=== PATIENT | female | born 1955 | race Caucasian/White ===

== ENCOUNTER 2024-11-20 12:17 | Outpatient (AMB) | payer MEDICARE, OTHER, SELFPAY ==
--- NOTE | 2024-11-20 12:19 | MHC.OFFVIS ---
Vital Signs 11/20/24 12:21 Height 5 ft 7 in BP 149/73 H Blood Pressure Location Rt brachial Pulse 69 Intake Visit Reasons: f/u Allergies No Known Allergies Allergy (Verified 11/20/24 12:25) Medication List - Last Reconciled 11/20/24 by Daisy Chowdhury CNP aripiprazole 2 mg PO DAILY aspirin 81 mg PO DAILY cdjtxekcwg-swmezgoake-ttc-cod [id number] mg 1 cap PO Q8H PRN cetirizine (Zyrtec) 10 mg PO DAILY fluticasone propionate 50 mcg/actuation 1 spray intranasal DAILY omeprazole 40 mg PO QAM pravastatin 40 mg PO DAILY propranolol 20 mg PO BID trazodone 100 mg PO BEDTIME venlafaxine 37.5 mg PO DAILY venlafaxine ER 150 mg PO DAILY HPI Comments Details: Headaches were happening about 2-3x/week and were more intense. Propranolol did not seem to be helping as much anymore. She was taking propranolol 20mg once a day in the morning. She did not realize directions were for twice a day and has not tried taking medication twice a day. Headaches were usually frontal, pressure-type pain with occasional photophobia and nausea, lasting up to a day. No sonophobia or vomiting. She was using Advil Cold and Sinus or butalbital as needed which helped to take the edge off. In the past, she used rizatriptan ODT with good relief and was asking if this medication could be tried again. Triggers included humidity. Sleep was okay. Going to gym. Previously, headaches were less intense with propranolol. No side effects. Using Butalbital as needed with relief in about 45 minutes. Hx of migraines 2-3 / wk controlled with Fioricet within half hour that started during menopause. Migraines can last up to 2 days. No triggers except possibly the hormonal changes of menopause and allergies. They start with a frontal headache across the face and therefore she calls them sinus migraines. Generally no associated sinus symptoms, does have some allergies. In the past she also found that Maxalt HARBORMASTER would work within 15 min. She also tried sumatriptan. She tried topiramate in the past for prophylaxis without relief. She has 2 sisters who have migraines. [facility] Medical History (Updated 11/20/24 @ 12:40 by Daisy Chowdhury CNP) COVID Headache Depression GERD (gastroesophageal reflux disease) Hypercholesterolemia Low back pain Migraine Family History Sister Migraine Sister Migraine Review of Systems Const Denies chills, Denies daytime sleepiness, Denies difficulty sleeping, Denies fatigue, Denies fever(s), Denies frequent falls, Reports headache(s), Denies increased appetite, Denies poor appetite, Denies snoring, Denies weakness, Denies weight gain and Denies weight loss Eyes Denies loss of vision ENT Reports Normal hearing present, Denies vertigo, Denies dizziness, Reports headache(s) and Denies neck pain Card Denies chest pain at rest, Denies chest pain with activity, Denies syncope, Denies leg edema, Denies palpitations, Denies dyspnea and Denies dyspnea on exertion Resp Denies cough, Denies dyspnea, Denies dyspnea on exertion and Denies snoring GI Denies abdominal pain, Denies constipation, Denies heartburn, Denies diarrhea and Denies nausea Denies urinary frequency, Denies urinary incontinence and Denies urinary urgency Musc Denies abnormal gait, Denies back pain, Denies myalgias, Denies arthralgias, Denies neck pain, Denies numbness, Denies stiffness and Denies tingling Neuro Reports Normal hearing present, Denies Abnormal speech present, Denies abnormal gait, Denies vertigo, Denies dizziness, Denies syncope, Denies frequent falls, Reports headache(s), Denies lack of coordination, Denies loss of vision, Denies memory loss, Denies numbness, Denies Other visual disturbances, Denies restless legs, Denies seizure-like activity, Denies tingling, Denies paresthesias, Denies tremor(s) and Denies weakness Psych Reports anxiety, Reports depression, Denies memory loss, Denies visual hallucinations and Denies hallucinations Endo Denies fatigue and Denies palpitations Physical Exam Const Other: General Appearance:? normal, in no acute distress. Heart:? S1, S2 normal, no murmurs. Lungs:? clear anteriorly and posteriorly. Musculoskeletal:? normal. Extremities:? no edema. Psych:? alert, oriented, cognitive function intact, cooperative with exam. Neuro Other: Abnormal Neurological Findings:?none.? Mental Status: alert and oriented X 3. Normal attention, orientation, memory, and affect. Cranial Nerves: Pupils are equal, round, and reactive to light. External ocular muscles are intact. Visual domingo are full, no ptosis. Face is symmetrical, no facial weakness or droop. Facial sensations are normal. Tongue protrudes in midline. Palate elevates symmetrically. Shoulder shrugging is normal Motor Examination: Normal muscle tone, bulk and strength. No atrophy or fasciculations. No drift of the extended upper extremities. DTR 2+. Plantars are flexor. Straight Leg Raisin degrees. Sensory Exam: Normal light touch, temperature, pinprick, vibration, and joint-position sensations. Rhomberg sign is absent. Coordination: No ataxia. No titubation. Nfcxti-eu-irga, wxom-mrql-vcfn test, and rapid alternating movements were normal. Gait Exam: Within normal limits. Cerebellar Signs: Lsnbsb-xx-ajby and dtjy-ck-pvpn is normal. No dysdiadochokinesia. Extrapyramidal System: No tremor, rigidity with normal facial expressions. No bradykinesia. No bradyphrenia. Normal arm swing and posture. No propulsion or retropulsion. Speech: Normal. No dysphasia or dysarthria. Cranial nerves: Yes Normal hearing present Speech: No Abnormal speech present Assessment & Plan Assessment & Plan (1) Migraine: Code(s): G43.909 - Migraine, unspecified, not intractable, without status migrainosus Category: Medical Qualifiers: Migraine type: unspecified Status migrainosus presence: without status migrainosus Intractability: not intractable Qualified Code(s): G43.909 - Migraine, unspecified, not intractable, without status migrainosus Plan: Increase propranolol dose, take propranolol 20mg 1 tablet twice a day Start rizatriptan ODT 10mg as needed Continue butalbital as needed Plan . Medications: New butalbital-acetaminophen 50-325 mg 1 tab PO Q8H PRN 30 tabs 2RF pain 30 days propranolol 20 mg PO BID 60 tabs 2RF 30 days rizatriptan (Maxalt-HARBORMASTER) 10 mg orally q4h as needed PRN; do not exceed 2 doses per 24 hrs 9 tabs 2RF migraine headache 30 days Coding Level of Care Code Est Pt Level 4 (43189) Diagnoses Migraine without status migrainosus, not intractable, unspecified migraine type G43.909 Migraine type: unspecified Status migrainosus presence: without status migrainosus Intractability: not intractable
[2024-11-20 12:21] VITALS: BP 149/73; PULSE 69
--- OUTSIDE RECORDS SUMMARY | 2024-11-20 12:53 | XMS_ITS | Continuity of Care Document ---
Author Organization [facility] [address] [facility] [address] [place] [address] Phone [phone] Care Team Providers Care Side Door Man Name Role Phone Landry Buck M.D. Care Team Information Recei mare [phone] Problems Active Problems Provider Date Adrenal adenoma DEANNA Wright Onset: 2024 Anxiety DEANNA Wright Onset: 2024 Depressive disorder DEANNA Wright Onset: Hypercholesterolemia DEANNA Wright Onset: 0 08/23/2024 Social History Type Date Description Comments Sex Female Sex Unknown Marital Status Legal Status: Lives With Spouse Work Status Retired Tobacco Use Start: Unknown Current Cigar Smoker 10 Da amira ETOH Use Has consumed alcohol in the past Recreational Drug Use Never Used Drugs Medications Active Medications SIG Qnty Indications Ordering Provider Date Ehtohfppnndlw0ar Tablets 1 tablet by mouth at 11 pm as directed 1tabs Janny Sherman M.D. 08/23/2024 Ddbwhzazcwhk0cm Tablets Take 1 Tablet By Mouth Daily Alia Gandhi Trazodone ZVQ07jn Tablets Take 2 Tablets By Mouth Every Day AT Bedtime as Needed Landry Buck M.D. Rosuvastatin Rwbnlme58bk Tablets Take 1 Tablet By Mouth Every Day Landry Buck M.D. Venlafaxine HCL37.5mg Tablets Take 1 Tablet By Mouth Every Day With 150 MG Capsule Unknown Xebiqjrbyt46wv Capsules DR Take 1 Capsule By Mouth Every Day 30 Minutes Before Breakfast Landry Buck M.D. Mfziiem656kyr Capsules Take 1 Capsule By Mouth Every Day 30 Minutes Before First Meal Of The Day On Jeanie Landry Buck M.D. 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
--- OUTSIDE RECORDS SUMMARY | 2024-11-20 12:53 | XMS_ITS | Clinical Summary ---
Author Organization [facility] Address [address] [place] [address] Care Team Providers Care Alarm Installation Technician Name Role Phone Landry Buck MD Primary Care Provider [phone] Allergies No known active allergies Medications Medication Sig Dispensed Refills Start Date End Date Status omeprazole (PriLOSEC) 40 MG capsule Take 40 mg by mouth daily. 0 Active pravastatin (PRAVACHOL) tablet 40 mg Take 40 mg by mouth daily. 0 Active venlafaxine (EFFEXOR-XR) 37.5 MG 24 hr capsule Take 37.5 mg by mouth daily. 0 Active Buprenorphine HCl-Naloxone HCl (SUBOXONE) 12-[address] 12 mg under the tongue daily. 0 Active ferrous sulfate 325 (65 FE) MG tablet Take 1 tablet (325 mg total) by mouth every morning with breakfast. 30 tablet 2 06/22/2018 Active folic acid (FOLVITE) tablet 1 mg Take 1 tablet (1,000 mcg total) by mouth daily. 30 tablet 2 08/29/2018 Active ARIPiprazole (ABILIFY) 2 MG tablet Take 2 mg by mouth daily. 0 12/11/2019 Active Tswlgsuzzi-DORY-Ewb feine 50-300-40 MG CAPS TAKE 1 CAPSULE BY MOUTH EVERY DAY NEEDED 0 12/03/2019 Active traZODone (DESYREL) 100 MG tablet TK 2 TS PO HS 0 11/24/2019 Active pravastatin (PRAVACHOL) tablet 40 mg pravastatin 40 mg tablet 0 Active omeprazole (PriLOSEC) 40 MG capsule omeprazole 40 mg capsule,delayed release 0 Active LORazepam (ATIVAN) 0.5 MG tablet 0 01/06/2020 Active amitriptyline (ELAVIL) 10 MG tablet 0 01/13/2020 Active HYDROmorphone (DILAUDID) 2 MG tablet Take 1 tab every 6 hours as needed for pain 20 tablet 0 03/31/2020 Active buprenorphine HCl-naloxone HCl 8-2 mg (SUBOXONE) sublingual film 0 07/14/2020 Active citalopram (CeleXA) 40 MG tablet citalopram 40 mg tablet 0 Active topiramate (TOPAMAX) 50 MG tablet Take 50 mg by mouth every night at bedtime. 0 01/21/2021 Active betamethasone, augmented, (DIPROLENE) 0.05 % cream 0 07/21/2021 Active fluconazole (DIFLUCAN) 100 MG tablet Take 100 mg by mouth every morning. 0 08/06/2021 Active Active Problems Problem Noted Date Diagnosed Date Anemia 09/18/2018 Gastroesophageal reflux disease 09/18/2018 Parotid mass 09/18/2018 Family History Medical History Relation Name Comments Diabetes Mother Relation Name Status Comments Mother Social History Tobacco Use Types Packs/Day Years Used Date Smoking Tobacco: Every Day Smokeless Tobacco: Never Alcohol Use Standard Drinks/Week Comments No 0 (1 standard drink = 0.6 oz pur e alcohol) Sex and Gender Information Value Date Recorded Sex Assigned at Not on file Gender Identity Not on file Sexual Orientation Not on file Job Start Date Occupation Industry Not on file Not on file Not on file Last Filed Vital Signs Vital Sign Reading Time Taken Comments Blood Pressure 129/55 09/18/2018 11:48 AM EDT Pulse 63 09/18/2018 11:48 AM EDT Temperature 36.8 C (98.3 F) 09/18/2018 11:48 AM EDT Respiratory Rate - - Oxygen Saturation - - Inhaled Oxygen Concentration - - Weight 74.8 kg (165 lb) 12/24/2019 12:59 PM EDT Height 170.2 cm (5' 7 ) 12/24/2019 12:59 PM EDT Body Mass Index 25.84 12/24/2019 12:59 PM EDT Plan of Treatment Health Maintenance Due Date Last Done Comments Hepatitis C Screening 1955 COVID-19 Vaccine (#1) 01/29/1956 Pneumococcal Vaccine (1 of 2 - PCV) 07/28/1961 Depression Screening 1967 BMI Counseling 07/28/1973 Preventative Health Evaluation 07/28/1973 Tobacco Cessation Counseling 07/28/1973 DTap / Tdap / Td (1 - Tdap) 07/28/1974 Colon Cancer Screening (Colonoscopy) 07/28/2000 Breast Cancer Screening (Mammogram) 07/28/2005 Shingrix-Zoster Vaccine (1 of 2) 07/28/2005 Fall Risk Assessment 07/28/2020 Osteoporosis Screening (DEXA Scan) 07/28/2020 Influenza Vaccine (Season Ended) 2025 RSV Adult > 60+ Yrs or Pregn ant (1 - 1-dose 75+ series) 07/28/2030 Hepatitis B Vaccines Aged Out No long er eligible based on patient's age to complete this topic RSV Ped < 20 months Aged Out No longe r eligible based on patient's age to complete this topic Care Teams Alarm Installation Technician Relationship Specialty Start Date End Date Landry Buck MD PCP - General Internal Medicine 12/20/16
== END 2024-11-20 12:50 | disposition home or self-care (01) ==
LOC: HO.HSM 12:18
PROVIDERS: Family Provider Internal Medicine; PCP Internal Medicine; Visit Provider Registered Nurse
DX: G43.909 Migraine, unspecified, not intractable, without status migrainosus (principal)
CPT/HCPCS: 99214

== ENCOUNTER → 2024-11-20 12:17 | Outpatient (BNVA) | payer MEDICARE, OTHER, SELFPAY | PROVIDERS: Family Provider Internal Medicine; PCP Internal Medicine; Visit Provider Registered Nurse | DX: G43.809 Other migraine, not intractable, without status migrainosus (principal); Z79.899 Other long term (current) drug therapy | CPT/HCPCS: 99212 ==

== ENCOUNTER 2025-03-17 06:56 | Outpatient (REF) | payer MEDICARE, OTHER, SELFPAY ==
--- OUTSIDE RECORDS SUMMARY | 2024-11-25 09:37 | XMS_ITS ---
Author Organization [facility] Address [address] [place], [place] [id number] Care Team Providers Care Business Analyst Intern Name Role Phone JASPER GONZALES Primary Care Provider REASON FOR VISIT ARIPiprazole Refill MEDICATIONS Medication SIG (Take, Route, Fr equency, Duration) Notes Start Date End Date Status ARIPiprazole 5 MG TAKE 1 TABLET BY WILLARD TH EVERY DAY Orally Once a day for 30 days Ac tive Encounters Encounter Location Date Provider Diagnosis [facility] [address] [place] [phone] 11/25/2024 JASPER GONZALES PLAN OF TREATMENT Medication Medication Name Sig Start Date Stop Date Notes ARIPiprazole 5 MG TAKE 1 TABLET BY WILLARD TH EVERY DAY Orally Once a day for 30 days Next Appt Details Provider Name:JASPER MAR, 08/14/2025 01:15:00 PM, [address] [place], [address],
--- OUTSIDE RECORDS SUMMARY | 2025-02-07 05:09 | XMS_ITS ---
Author Organization [facility] Address [address] [place], [place] [id number] Care Team Providers Care Spout Tender Name Role Phone JASPER GONZALES Primary Care Provider REASON FOR VISIT Linzess rx Encounters Encounter Location Date Provider Diagnosis [address] [address] 02/07/2025 JASPER GONZALES PLAN OF TREATMENT Next Appt Details Provider Name:JASPER MAR, 08/14/2025 01:15:00 PM, [address] [place], [address],
--- OUTSIDE RECORDS SUMMARY | 2025-02-12 07:14 | XMS_ITS ---
Author Organization [facility] Address [address] [place], [place] [phone] Care Team Providers Care Motor Polarizer Name Role Phone JASPER GONZALES Primary Care Provider [phone] REASON FOR VISIT preop, cataracts Encounters Encounter Location Date Provider Diagnosis [address] [address] 02/12/2025 JASPER GONZALES PLAN OF TREATMENT Next Appt Details Provider Name:JASPER MAR, 08/14/2025 01:15:00 PM, [address] [place], [address],
--- OUTSIDE RECORDS SUMMARY | 2025-02-20 11:20 | XMS_ITS ---
Author Organization [facility] Address [address] [place], [place] [id number] Care Team Providers Care Windows Systems Admin Name Role Phone JASPER GONZALES Primary Care Provider DIANA ARAUJO [phone] REASON FOR VISIT PG/42/preop, cataracts Encounters Encounter Location Date Provider Diagnosis [address] [address] 02/20/2025 DIANA ARAUJO PLAN OF TREATMENT Next Appt Details Provider Name:JASPER MAR, 08/14/2025 01:15:00 PM, [address] [place] [address], [phone],
--- OUTSIDE RECORDS SUMMARY | 2025-02-21 05:50 | XMS_ITS ---
Author Organization [facility] Address [address] [place], [place] [id number] Care Team Providers Care Pillar Worker Name Role Phone JASPER GONZALES Primary Care Provider REASON FOR VISIT r/s pre op to 02/24/25 Encounters Encounter Location Date Provider Diagnosis [address] [address] 02/21/2025 JASPER GONZALES PLAN OF TREATMENT Next Appt Details Provider Name:JASPER MAR, 08/14/2025 01:15:00 PM, [address] [place], [address],
--- OUTSIDE RECORDS SUMMARY | 2025-02-22 11:57 | XMS_ITS ---
Author Organization [facility] Address [address] [place], [place] [phone] Care Team Providers Care Nuclear Medicine Chief Technologist Name Role Phone JASPER GONZALES Primary Care Provider [phone] REASON FOR VISIT (H)bw results Encounters Encounter Location Date Provider Diagnosis [address] [address] 02/22/2025 JASPER GONZALES PLAN OF TREATMENT Next Appt Details Provider Name:JASPER MAR, 08/14/2025 01:15:00 PM, [address] [place], [address],
--- OUTSIDE RECORDS SUMMARY | 2025-02-22 11:59 | XMS_ITS ---
Author Organization [facility] Address [address] [place], [place] [phone] Care Team Providers Care Supervisor Instrument Maintenance Name Role Phone JASPER GONZALES Primary Care Provider Encounters Encounter Location Date Provider Diagnosis [address] [address] 02/22/2025 JASPER GONZALES PLAN OF TREATMENT Next Appt Details Provider Name:JASPER MAR, 08/14/2025 01:15:00 PM, [address] [place], [address],
--- OUTSIDE RECORDS SUMMARY | 2025-02-24 04:20 | XMS_ITS ---
Author Organization [facility] Address [address] [place], [place] [id number] Care Team Providers Care Assistant Sales Director Name Role Phone JASPER GONZALES Primary Care Provider DIANA ARAUJO [phone] ALLERGIES No Known Allergies REASON FOR VISIT pre op MEDICATIONS Medication SIG (Take, Route, Frequency, Duration) Notes Start Date End Date Status Rosuvastatin Calcium 20 MG TAKE 1 TABLET BY MOUTH EVERY DAY for 30 Active traZODone HCl 50 MG TAKE 2 TABLETS BY MO UTH EVERY DAY AT BEDTIME NEEDED for 90 Active Linzess 145 MCG TAKE 1 CAPSULE BY MO UTH EVERY DAY 30 MINUTES BEFORE FIRST MEAL OF THE DAY ON AN EMPTY STOMACH for 30 Active Omeprazole 40 MG TAKE 1 CAPSULE BY MO UTH EVERY DAY 30 MINUTES BEFORE BREAKFAST for 90 Active ARIPiprazole 5 MG TAKE 1 TABLET BY WILLARD EVERY DAY Orally Once a day for 30 days Active Aspirin 81 81 MG 1 tablet Orally Once a day for 30 day(s) Active Venlafaxine HCl ER 150 MG 1 capsule with food Orally Once a day for 90 days Active PROBLEMS Problem Type ICD Code Onset Dates Problem Status W/U Status Risk SNOMED Code Notes Problem Age-related cataract of both eyes, unspecified age-related cataract type (H25.9) Active confirmed [id number] VITAL SIGNS Height 70 in 02/24/2025 Weight 160 lbs 02/24/2025 Blood pressure systolic 122 mm Hg 02/25/20 25 Blood pressure diastolic 64 mm Hg 025 BMI 22.96 kg/m2 02/24/2025 Encounters Encounter Location Date Provider Diagnosis [facility] [address] [place] [address] 02/24/2025 DIANA ARAUJO Preop cardiovascular exam Z01.810 ; Essential (primary) hypertension I10 ; Chronic obstructive pulmonary disease, unspecified COPD type J44.9 and Age-related cataract of both eyes, unspecified age-related cataract type H25.9 ASSESSMENTS Encounter Date Diagnosis Assessment Notes Treatment Notes Treatment Clinical Notes Section Notes 02/24/2025 Preop cardiovascular exam (ICD-10 - Z01.810) Do not take NSAIDs (ibuprofen, naproxen, and similar meds) 1 week prior to surgery. You may take your usual medications on the day of surgery with a small amount of water. EKG and labs not needed. Patient is cleared as of today for this low risk surgery. 02/24/2025 Essential (primary) hypertension (ICD-10 - I10) Blood pressure under good control. She remains off of antihypertensives at this time. Follow-up with Dr. Gonzales as scheduled. 02/24/2025 Chronic obstructive pulmonary disease, unspecified COPD type (ICD-10 - J44.9) Currently stable. She does continue to smoke and spent time discussing the importance of smoking cessation and strategies. She is not using any inhalers at this time and has not had any issues with shortness of breath or wheezing. Follow-up with Dr. Gonzales as scheduled. 02/24/2025 Age-related cataract of both eyes, unspecified age-related cataract type (ICD-10 - H25.9) Surgery as scheduled. Follow-up with ophthalmology. PLAN OF TREATMENT Treatment Notes Assessment Notes Preop cardiovascular exam Do not take NSAIDs (ibuprofen, naproxen, and similar meds) 1 week prior to surgery. You may take your usual medications on the day of surgery with a small amount of water. EKG and labs not needed. Patient is cleared as of today for this low risk surgery. Essential (primary) hypertension Blood p ressure under good control. She remains off of antihypertensives at this time. Follow-up with Dr. Gonzales as scheduled. Chronic obstructive pulmonar y disease, unspecified COPD type Currently stable. She does continue to s moke and spent time discussing the importance of smoking cessation and strategies. She is not using any inhalers at this time and has not had any issues with shortness of breath or wheezing. Follow-up with Dr. Gonzales as scheduled. Age-related cataract of both eyes, unspecified age-related cataract type Surgery as scheduled. Follow-up with ophthalmology. Next Appt Details Follow Up: Cleared for surge ry as of today. Continue current medications as prescribed. Follow-up with Dr. Gonzales as scheduled March 04, 2025., Reason: Provider Name:JASPER MAR, 08/14/2025 01:15:00 PM, [address] [place], [address], Progress Notes * Examination Category Sub-Category Detail Notes Category Not es General Examination HEENT: NC/AT, EOMI,PERRL Neck: supple, no lymphaden opathy, no thyroid abnormality, no carotid bruit, JVP flat Heart: RRR, no murmurs, cli cks or rubs, no gallops, normal S1S2 Lungs: clear to auscultatio n Abdomen: soft, non tender/non distended, no masses palpated, no hepatosplenomegaly, normal active bowel sounds Extremities: no clubbing , cyanos is, or edema General Appearance NAD, pleasant Skin: normal, no rash Neuro CN 2-12 intact, doreen r 5/5 bilaterally proximally and distally in all 4 extremities, alert and oriented x3, no focal abnormality, gait normal Oral cavity: pharnyx and tonsils normal History and Physical Notes * HPI (History of Present Illness) Category Sub-Category Detail Notes Category Not es General Pre-operative Evaluation Surgeon: Dr. Blayne Ta for bilateral cataract surgery Date of surgery: Left eye to be done on March 05, 2025 with right eye to follow-up on March 24, 2025 Proposed anesthesia: MAC Patient of Dr. Gonzales seen today for preop evaluation prior to cataract surgery. Patient with history of hypertension, hyperlipidemia, COPD, GERD, chronic constipation, anxiety and migraines. Blood pressure under good control and patient is not taking any antihypertensives. She does take rosuvastatin 20 mg daily for her cholesterol, omeprazole 40 mg daily for GERD, Linzess 145 mcg daily for constipation, aspirin 81 mg daily, venlafaxine ER 150 mg once a day, aripiprazole 5 mg once a day and trazodone 50 mg 2 tablets at bedtime as needed. Patient is a smoker and continues to smoke about 1/2 pack a day. Started at age 29. She does get yearly LDCT lung cancer screenings which have been clear. She gets regular exercise 5 days a week at the where she does about 40 minutes of cardio followed by some light weight training. No shortness of breath or chest pain with exercise. Also able to go up 2 flights of stairs and walk over 100 yards without any difficulty. METs greater than or equal to 6. Here in the office has no acute complaints today. Denies any headaches, chest pain, shortness of breath, abdominal pain, weakness, dizziness, numbness, tingling, nausea, vomiting, blood per rectum, black or tarry stools or any urinary issues.
--- OUTSIDE RECORDS SUMMARY | 2025-03-03 04:56 | XMS_ITS ---
Author Organization [facility] Address [address], [place] [id number] Care Team Providers Care Softwood Faller Name Role Phone JASPER GONZALES Primary Care Provider [phone] REASON FOR VISIT rescheduled appt Encounters Encounter Location Date Provider Diagnosis [address] [address] 03/03/2025 JASPER GONZALES PLAN OF TREATMENT Next Appt Details Provider Name:JASPER MAR, 08/14/2025 01:15:00 PM, [address] [place], [address],
--- OUTSIDE RECORDS SUMMARY | 2025-03-04 06:00 | XMS_ITS ---
Author Organization [facility] Address [address] [place], [place] [id number] Care Team Providers Care Truck Farmer Name Role Phone JASPER GONZALES Primary Care Provider [phone] REASON FOR VISIT 6mo F/U MEDICATIONS Medication SIG (Take, Route, Frequency, Duration) Notes Start Date End Date Status Rosuvastatin Calcium 20 MG TAKE 1 TABLET BY MOUTH EVERY DAY for 30 Unknown Omeprazole 40 MG TAKE 1 CAPSULE BY MO UTH EVERY DAY 30 MINUTES BEFORE BREAKFAST for 90 Unknown ARIPiprazole 5 MG TAKE 1 TABLET BY WILLARD EVERY DAY Orally Once a day for 30 days Unknown traZODone HCl 50 MG TAKE 2 TABLETS BY MO UTH EVERY DAY AT BEDTIME NEEDED for 90 Unknown Linzess 145 MCG TAKE 1 CAPSULE BY MO UTH EVERY DAY 30 MINUTES BEFORE FIRST MEAL OF THE DAY ON AN EMPTY STOMACH for 30 Unknown Aspirin 81 81 MG 1 tablet Orally Once a day for 30 day(s) Unknown Venlafaxine HCl ER 150 MG 1 capsule with food Orally Once a day for 90 days Unknown dexAMETHasone 1 MG 1 tablet Orally to t edinson at 11 pm for 1 days 04/23/2024 Unknown Encounters Encounter Location Date Provider Diagnosis [facility] [address] [place] [address] 03/04/2025 JASPER GONZALES Anxiety disorder, unspecified F41.9 ; Gastroesophageal reflux disease without esophagitis K21.9 ; Restless leg syndrome G25.81 ; Hyperlipidemia, unspecified hyperlipidemia type E78.5 ; 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 ; Essential (primary) hypertension I10 ; Screening for lung cancer Z12.2 ; Osteoporosis screening Z13.820 ; Adrenal adenoma, unspecified laterality D35.00 ; Encounter for screening mammogram for malignant neoplasm of breast Z12.31 and Colon cancer screening Z12.11 ASSESSMENTS Encounter Date Diagnosis Assessment Notes Treatment Notes Treatment Clinical Notes Section Notes 03/04/2025 Anxiety disorder, unspecified (ICD-10 - F41.9) 03/04/2025 Gastroesophageal reflux disease without esophagitis (ICD-10 - K21.9) 03/04/2025 Restless leg syndrome (ICD-10 - G25.81) 03/04/2025 Hyperlipidemia, unspecified hyperlipidemia type (ICD-10 - E78.5) 03/04/2025 Migraine aura occurring with and without headache (ICD-10 - G43.109) 03/04/2025 Essential (primary) hypertension (ICD-10 - I10) 03/04/2025 Screening for lung cancer (ICD-10 - Z12.2) 03/04/2025 Osteoporosis screening (ICD-10 - Z13.820) 03/04/2025 Adrenal adenoma, unspecified laterality (ICD-10 - D35.00) 03/04/2025 Encounter for screening mammogram for malignant neoplasm of breast (ICD-10 - Z12.31) 03/04/2025 Colon cancer screening (ICD-10 - Z12.11) PLAN OF TREATMENT Pending Test Test Name Order Date EKG 03/04/2025 Future Test Test Name Order Date Urinalysis, Complete [id number] CBC, Platelet, w/o [id number] 1 Lipid Panel-[id number] 02/22/2025 Hepatic Function Panel [id number] 2024 HCV Antibody-[id number] 02/22/2025 BMP8+eGFR-[id number] 02/22/2025 Next Appt Details Follow Up: Physical exam doi ng 1 year labs pending EKG today, Reason: Provider Name:JASPER MAR, 08/14/2025 01:15:00 PM, [address] [place], [address], History and Physical Notes * HPI (History of Present Illness) Category Sub-Category Detail Notes Category Not es General Follow-up hyper lipidemia see review of systems below
--- NOTE | ~2025-03-17 | XR_ITS ---
EXAMINATION: XR KNEE 3 VIEWS LEFT HISTORY: M25.562 - Pain in left knee COMPARISON: There are no prior studies available for comparison. FINDINGS: Three views of the right knee are submitted. Osseous mineralization is normal. There is no fracture or dislocation. There is mild tricompartmental osteoarthritis with joint space narrowing and osteophyte formation. The soft tissues are unremarkable. There is no joint effusion. XR/XR knee LT 3V IMPRESSION: Mild tricompartmental osteoarthritis. Electronically signed by: Natan Marquez MD 03/17/2025 11:41 AM EDT
--- OUTSIDE RECORDS SUMMARY | 2025-03-17 06:59 | XMS_ITS | Patient Health Record ---
Author Organization [facility] Address [address] [place], [place] [id number] Care Team Providers Care Price Changer Name Role Phone JASPER GONZALES Primary Care Provider [phone] ARAUJODIANA ANDERSON Unavailable [phone] ALLERGIES No Known Allergies REASON FOR REFERRAL Reason Referral to [facility] for adrenal adenoma send copy of my note CAT scan and all the labs and urine to her in the last year Dr. Janny Lopez Diagnosis 1 History of adrenal a denoma (Z86.018) Referral Organization [facility] As [facility] Referring Provider First Name JASPER Referring Provider Last Name CHRISTIAN Referring Provider Speciality Internal edicine Referral Priority Routine Reason Referral to Jamie segura patient will call and make appointment Diagnosis 1 Skin cancer screenin g (Z12.83) Referral Organization [facility] Referring Provider First Name JASPER Referring Provider Last Name CHRISTIAN Referring Provider Speciality Internal edicine Referral Priority Routine MEDICATIONS Medication SIG (Take, Route, Frequency, Duration) [...] DAY AT BEDTIME NEEDED for 90 Unknown Aspirin 81 81 MG 1 tablet Orally Once a day for 30 day(s) Unknown Venlafaxine HCl ER 150 MG 1 capsule with food Orally Once a day for 90 days Unknown dexAMETHasone 1 MG 1 tablet Orally to t edinson at 11 pm for 1 days 04/23/2024 Unknown Linzess 145 MCG TAKE 1 CAPSULE BY BRANDON HEDRICK EVERY DAY 30 MINUTES BEFORE FIRST MEAL OF THE DAY ON AN EMPTY STOMACH for 30 Unknown SOCIAL HISTORY Tobacco Use: Social History Observation Description Date Details (start date - stop date) Current Smoker NA - NA Sex Assigned At : Social History Observation Description Sex Assigned At Unknown Smoking Question Answer Notes Are you a: current smoker How many cigarettes a day do you smoke? 11-20 Section Notes: smokes 1/2 ppd since age 29 PROBLEMS Problem Type ICD Code Onset Dates Problem Status W/U Status Risk SNOMED Code Notes Problem Essential (primary) hypertension (I10) Active confirmed Essential hypertension (62632383) Problem Restless leg syndrome (G25.81) Active confirmed 28628245 Problem Anxiety disorder, unspecified (F41.9) Active confirmed 562589884 Problem Other chronic pain (G89.29) Active confirmed 21797695 Problem Gastroesophageal reflux disease without esophagitis (K21.9) Active confirmed 700341109 Problem Chronic obstructive pulmonary disease, unspecified COPD type (J44.9) Active confirmed 00762673 Problem Adrenal nodule (E27.9) Active confirmed 878933598 Problem Hyperlipidemia, unspecified hyperlipidemia type (E78.5) Active confirmed 30049944 Problem Age-related cataract of both eyes, unspecified age-related cataract type (H25.9) Active confirmed 08439423 Problem Migraine aura occurring with and without headache (G43.109) Active confirmed 9480256 Problem History of adrenal adenoma (Z86.018) Active confirmed [id number] VITAL SIGNS Blood pressure diastolic 64 mm Hg 02/24/2025 Height 70 in 02/24/2025 Blood pressure systolic 122 mm Hg 02/24/2025 Weight 160 lbs 02/24/2025 BMI 22.96 kg/m2 02/24/2025 Encounters Encounter Location Date Provider Diagnosis [address] [address] 04/22/2024 JASPER GONZALES [address] [address] 04/22/2024 JASPER GONZALES Adrenal adenoma, unspecified laterality D35.[address] [address] 04/22/2024 JASPER GONZALES [address] [address] 04/26/2024 JASPER GONZALES Adrenal nodule E27.9 [facility] [address] [place] [address] 04/29/2024 JASPER GONZALES [facility] [address] [place] [address] 04/30/2024 JASPER GONZALES Elevated blood sugar R73.[address] [address] 04/30/2024 JASPER GONZALES Elevated blood sugar R73.9 [facility] [address] [place] [address] 04/30/2024 JASPER GONZALES [address] [address] 04/30/2024 JASPER GONZALES [address] [address] 05/03/2024 JASPER GONZALES [address] [address] 05/06/2024 JASPER GONZALES History of adrenal adenoma Z86.[address] [address] 05/23/2024 JASPER GONZALES [address] [address] 08/16/2024 JASPER GONZALES [address] [address] 08/16/2024 JASPER GONZALES [address] [address] 08/27/2024 JASPER GONZALES Anxiety disorder, unspecified F41.9 ; Gastroesophageal reflux disease without esophagitis K21.9 ; Restless leg syndrome G25.81 ; Hyperlipidemia, unspecified hyperlipidemia type E78.5 ; Depression, unspecified F32.A ; 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 ; Chronic obstructive pulmonary disease, unspecified COPD type J44.9 ; Encounter for screening mammogram for malignant neoplasm of breast Z12.31 ; Osteoporosis screening Z13.820 and Skin cancer screening Z12.[address] [address] 09/26/2024 JASPER GONZALES [address] [address] 09/26/2024 JASPER GONZALES [address] [place] [address] 10/22/2024 JASPER GONZALES [address] [address] 11/25/2024 JASPER GONZALES [address] [address] 02/07/2025 JASPER GONZALES [address] [address] 02/12/2025 JASPER GONZALES [address] [address] 02/20/2025 DIANA ARAUJO [address] [address] 02/21/2025 JASPER GONZALES [address] [address] 02/22/2025 JASPER GONZALES [address] [address] 02/22/2025 JASPER GONZALES [address] [address] 02/24/2025 DIANA ARAUJO Preop cardiovascular exam Z01.810 ; Essential (primary) hypertension I10 ; Chronic obstructive pulmonary disease, unspecified COPD type J44.9 and Age-related cataract of both eyes, unspecified age-related cataract type H25.[address] [address] 03/03/2025 JASPER GONZALES [address] [address] 03/04/2025 JASPER GONZALES Anxiety disorder, unspecified F41.9 [...] Treatment Notes Treatment Clinical Notes Section Notes 08/27/2024 Anxiety disorder, unspecified (ICD-10 - F41.9) Stable doing well continue aripiprazole and venlafaxine follow-up with counseling 08/27/2024 Gastroesophageal reflux disease without esophagitis (ICD-10 - K21.9) Doing well dietary recommendations discussed head of bed elevation stop smoking 04/22/2024 Adrenal adenoma, unspecified laterality (ICD-10 - D35.00) 04/26/2024 Adrenal nodule (ICD-10 - E27.9) 04/30/2024 Elevated blood sugar (ICD-10 - R73.9) 04/30/2024 Elevated blood sugar (ICD-10 - R73.9) 05/06/2024 History of adrenal adenoma (ICD-10 - Z86.018) 03/04/2025 Anxiety disorder, unspecified (ICD-10 - F41.9) 03/04/2025 Gastroesophageal reflux disease without esophagitis (ICD-10 - K21.9) 02/24/2025 Essential (primary) hypertension (ICD-10 - I10) Blood pressure under good control. She remains off of antihypertensives at this time. Follow-up with Dr. Gonzales as scheduled. 02/24/2025 Preop cardiovascular exam (ICD-10 - Z01.810) Do not take NSAIDs (ibuprofen, naproxen, and similar meds) 1 week prior to surgery. You may take your usual medications on the day of surgery with a small amount of water. EKG and labs not needed. Patient is cleared as of today for this low risk surgery. 02/24/2025 Chronic obstructive pulmonary disease, unspecified COPD type (ICD-10 - J44.9) Currently stable. She does continue to smoke and spent time discussing the importance of smoking cessation and strategies. She is not using any inhalers at this time and has not had any issues with shortness of breath or wheezing. Follow-up with Dr. Gonzales as scheduled. 03/04/2025 Restless leg syndrome (ICD-10 - G25.81) 08/27/2024 Restless leg syndrome (ICD-10 - G25.81) Stable doing well 08/27/2024 Hyperlipidemia, unspecified hyperlipidemia type (ICD-10 - E78.5) Continue statin therapy review of systems negative for side effects check lipid profile LDL goal less than 100 total cholesterol less than 200 03/04/2025 Hyperlipidemia, unspecified hyperlipidemia type (ICD-10 - E78.5) 02/24/2025 Age-related cataract of both eyes, unspecified age-related cataract type (ICD-10 - H25.9) Surgery as scheduled. Follow-up with ophthalmology. 08/27/2024 Depression, unspecified (ICD-10 - F32.A) Doing well with above combination 03/04/2025 Migraine aura occurring with and without headache (ICD-10 - G43.109) 08/27/2024 Migraine aura occurring with and without headache (ICD-10 - G43.109) Stable exam unremarkable no red flags 03/04/2025 Essential (primary) hypertension (ICD-10 - I10) 08/27/2024 Chronic obstructive pulmonary disease, unspecified COPD type (ICD-10 - J44.9) Strongly recommend discontinuation of cigarettes follow-up with low-dose CT scan of the chest in the fall 03/04/2025 Screening for lung cancer (ICD-10 - Z12.2) 08/27/2024 Encounter for screening mammogram for malignant neoplasm of breast (ICD-10 - Z12.31) Rx given to patient for mammogram 03/04/2025 Osteoporosis screening (ICD-10 - Z13.820) 08/27/2024 Osteoporosis screening (ICD-10 - Z13.820) Calcium plus vitamin D twice daily weightbearing exercise alcohol moderation no smoking 03/04/2025 Adrenal adenoma, unspecified laterality (ICD-10 - D35.00) 08/27/2024 Skin cancer screening (ICD-10 - Z12.83) Referral to know the dermatology patient will call 03/04/2025 Encounter for screening mammogram for malignant neoplasm of breast (ICD-10 - Z12.31) 03/04/2025 Colon cancer screening (ICD-10 - Z12.11) PLAN OF TREATMENT Pending Test Test Name Order Date EKG 03/04/2025 US Breast Left 02/01/2023 US Breast Left 01/30/2023 CT Soft Tissue Neck with IV contrast 11/2023 CT chest w/o contrast 01/30/2023 Bone Density 2 site DEXA 08/27/2024 Future Test Test Name Order Date COMPLETE URINALYSIS 01/19/2023 COMPLETE URINALYSIS 01/29/2023 Hemoglobin [id number] 04/30/2024 Urinalysis, Complete w/[id number] 025 CBC, Platelet, w/o Differential-[id number] 1 Lipid Panel-[id number] 02/22/2025 Hepatic Function Panel [id number] 2024 HCV Antibody-[id number] 02/22/2025 BMP8+[id number] 02/22/2025 Next Appt Details Provider Name:JASPER HOLLIDAY ZAID, 08/14/2025 01:15:00 PM, [address] [place], [address], Insurance Providers Payer Name Payer Address Payer Phone Subscriber Number Group Number Insured Name Patient Relationship to Insured Coverage Start Date Coverage End Date MEDICARE [employer] [address] [place] [address] [id number] MARY MCDOWELL Self - patient is the insured [facility] [address] [place], [place] [id number] MARY MCDOWELL Self - patient is the insured MEDICAL (GENERAL) HISTORY Medical History History ICD Code Anxiety depression Chronic fatigue Chronic headaches migraines History of GERD Hyperlipidemia [facility] arthro[facility] const[facility] Dr. Dunn D[facility] August 2020 PFTs normal Colonoscopy April 2017 Dr. Dunn re check in 10 years Mammogram July 2022 Bone density June 2021 Vaccination status. COVID 3 shots. Tdap due 2007. Pneumovax per patient done x2 Shingrix 2 shots. Mammogram November 2023 normal Chest x-ray October [address] of the chest March 2024 benign nod ules left adrenal benign adenoma CT of the abdomen April 2024 3.1 cm b enign left adrenal adenoma Mammogram December 2024 negative Surgical History Surgery Date(Month/Year) courtney cintron
--- OUTSIDE RECORDS SUMMARY | 2025-03-17 06:59 | XMS_ITS ---
Author Name [facility] Organization Unknown History of Medication Use Medication Directions Dispensed Refills Start Date End Date Stat lidocaine (PF) 100 mg/5 mL (2 %) injection syringe Take 4 mL by injection route. 05/03/2024 active Marcaine (PF) 0.5 % (5 mg/mL) injection solution Take 4 mL by injection route. 05/03/2024 active triamcinolone acetonide 40 mg/mL suspension for injection Take 40 mg by injection route. 05/03/2024 active triamcinolone acetonide 40 mg/mL suspension for injection active Marcaine (PF) 0.5 % (5 mg/mL) injection solution active lidocaine (PF) 100 mg/5 mL (2 %) injection syringe active aripiprazole 2 mg tablet TAKE 1 TABLET BY MOUTH DAILY active aripiprazole 5 mg tablet TAKE 1 TABLET BY MOUTH EVERY DAY active azithromycin 250 mg tablet active betamethasone dipropionate 0.05 % topical ointment APPLY TOPICALLY TO THE SKIN 2 TIMES WEEKLY active dexamethasone 1 mg tablet TAKE 1 TABLET BY MOUTH AT 11 PM FOR 1 DAY active Linzess 145 mcg capsule TAKE 1 CAPSULE BY MOUTH EVERY DAY 30 MINUTES BEFORE FIRST MEAL OF THE DAY ON AN EMPTY STOMACH active omeprazole 40 mg capsule,delayed release TAKE 1 CAPSULE BY MOUTH EVERY DAY 30 MINUTES BEFORE BREAKFAST active propranolol 20 mg tablet TAKE 1 TABLET BY MOUTH TWICE DAILY active rosuvastatin 20 mg tablet TAKE 1 TABLET BY MOUTH EVERY DAY active topiramate 100 mg tablet TAKE 1 TABLET BY MOUTH EVERY NIGHT AT BEDTIME active trazodone 100 mg tablet TAKE 2 TABLETS BY MOUTH AT BEDTIME active trazodone 50 mg tablet TAKE 2 TABLETS BY MOUTH EVERY DAY AT BEDTIME NEEDED active venlafaxine 37.5 mg tablet TAKE 1 TABLET BY MOUTH DAILY WITH 150 MG TABSULES active venlafaxine ER 150 mg capsule,extended release 24 hr TAKE 1 CAPSULE BY MOUTH EVERY DAY active Problems Problem Status Onset Date Problem Type Date of Resoluti on Source Osteoarthritis of left knee joint active 2024-05-03 ProblemAct ENS_AONECT Encounters Encounter Type Encounter Reason Primary Diagnosis Location Date Ambulatory [facility] 05/06/2024 Ambulatory [facility] 05/03/2024 Ambulatory [facility] 05/03/2024 Ambulatory [facility] 05/03/2024 Ambulatory [facility] 05/03/2024 Ambulatory [facility] 02/05/2024 Ambulatory [facility] 02/05/2024 Ambulatory [facility] 02/05/2024 Ambulatory [facility] 02/05/2024
--- OUTSIDE RECORDS SUMMARY | 2025-03-17 06:59 | XMS_ITS | Data Portability ---
Author Organization [place] [facility] Address [address] [place] [address] [place] [address] Care Team Providers Care Emergency Dispatch Operator Name Role Phone JASPER GONZALES Primary Care Provider [phone] Assessment Encounter Date Assessment Date Assessment LastModified by Organization Details LastModified Time 04/22/2018 04/22/2018 Overview/History : Pt is a 62 y/o F with pmhx including but not limited to HLD, Depression, Nicotene Dependence, Opioid Dependence currently on Suboxone new to who currently lives at home with her who we are called to evaluate for epistaxis. Sxs began this am out of the left nare. Had been intermittent all day then active bleeding, profuse bleeding began from 2:30-3:30 promptly to call us. Pt has no previous history of nose bleeds, not on any anticoagulants. Pt states she has sinus issues and has been blowing her nose excessively and forcefully over the past few days. Has had heat in her house up and it has been dry. No trauma. Denies fever, chills, headache, dizziness, CP, SOB, palpitations, syncope. Exam: Vitals obtained, reviewed, and without evidence of fever, tachycardia, tachypnea or acute hypoxia on room air. Arrived to find a non-toxic appearing appearing female in NAD. Appears older than stated age. AAOX4. Speech clear. OP clear with dry mucous membranes. No blood noted in the posterior pharynx. Nares patent. No active bleeding. No oozing, no residual blood in the nares. TM's clear. heart rate irregular, regular rate. Lungs CTAB. DDx considered, but not limited to: anterior epistaxis, posterior epistaxis Plan/Discussion: Pt presents with epistaxis that started this am, intermittent most of the day, persistent for about 1 hour, now subsided. No h/o epistaxis. No blood thinners, no trauma. No intervention needed. No recurrent bleeding during visit. Discussed preventative measures including increased hydration, avoiding heavy lifing of anything over 10 pounds, avoiding forceful blowing of the nose, sneezing or coughing. Do not pick nose or stick anything up the nose unless bleeding re-starts. If bleeding re-starts, apply direct pressure to bridge of nose and lean forward. Left pt with margarito-synephrine. Advised to spray cotton ball or small tampon then insert into nose and use clamp. If bleeding persists despite these measures, please call us back. Red flag symptoms discussed: profuse bleeding from back of nose, into throat, difficulty breathing, dizziness, CP, palpitations, passing out->seek immediate care at nearest ER or call 911. Pt also encouraged to use petroleum jelly to lubricate nares, use humidifier at night, hot, steam showers. Pt expressed understanding and agreement with this plan of care and discharge instructions. I discussed the patient case with Dr. Kauffman and under their direction they prescribed the following medications: margarito-synephrine (left with patient on scene). In Time On Scene with Patient: 00:36:09 [email or web address] Not available 04/22/2018 18:04:19 Plan of Treatment Reminders Order Date Submit Date Provider Last Modified By Organization Details Last Modified Time Details Appointments None recorde d. Lab None recorde d. Referral None recorde d. Procedures None recorde d. Surgeries None recorde d. Imaging None recorde d. Medication Orders Margarito-Syn ephrine (phenyl ephrine ) 0.5 % nasal spray [id number] [email or web address] Not available 8 14:37:29 Patient TargetsNo targets recorded. Patient Instructions Encounter Date Encounter Id Patient Instructions Last Modified By Organization Details Last Modified Time 04/22/2018 [id number] Nosebleed (epistaxis) Epistaxis occurs when the blood vessels close to the surface of the mucous membranes of the nose are damaged and begin to bleed. This can occur spontaneously but is more common in people who take blood thinners, are exposed dry environments such as occurs in the winter when homes are heated and with frequent nose picking. Packing: You may have had packing placed in your nasal cavity today. You need to have this packing removed in 2-3 days. You should see your primary care provider or Ear, Nose and Throat doctor for a re-check and to have this removed or the Nurse Practitioner at [facility] may arrange to come out and have it removed. Use some saline drops at the opening of your nasal cavity to keep the packing moist. The packing will absorb a bit of the saline like sponge. WE DIDN'T NEED TO PACK YOU TODAY BUT IF THE BLEEDING STARTS AGAIN AND YOU ARE UNABLE TO CONTROL IT WITH THE REMEDIES WE SPOKE ABOUT, PLEASE CALL US BACK AND WE CAN PLACE A NASAL PACKING TO HELP CONTROL THE BLEEDING. Re-bleeding: If the bleeding recurs (even if packing still in place), take the following steps: 1) sit up tall and bend your head down a bit. This position helps keep blood from going down the wind-pipe. Spitting the blood out into a cup is preferable. It is not dangerous to swallow the blood, but it can make you nauseated and could potentially cause your stools to turn black. 2) Use the nose clip or your fingers to pinch your nose shut for at least 10 minutes. Consider using a cold pack or ice over the bridge of the nose as this can help slow down bleeding. Use a protective layer such as a pillowcase in between the ice and your skin. 3) Consider squirting a few drops of NeoSynephrine or Afrin in the nose or onto the packing before you pinch your nose shut. 4) If the bleeding does not stop after 20 minutes, call us back Prevention: Once the packing is removed, avoid further nosebleeds: 1) Use saline or some other cuxs-nxq-doiommv nasal moisturizing drops (you can consult a pharmacist for recommendation) frequently throughout the day to keep mucous membranes moist. 2) Before bedtime, use a cotton swab or the tip of your pinky finger to place some vaseline on the mucous membranes on the inside caba of your nose. 3) Do not pick your nose or use too much force when blowing your nose. 4) Consider using a humidifier, especially at night in the room where you sleep. 5) Drink plenty of fluids, stay hydrated. Do not lift anything heavy over 10 lbs. REST. 6) AVOID BLOWING YOUR NOSE. JUST DAP YOUR NOSE. Seek Care Immediately: 1) if you develop fever or vomiting 2) if the packing becomes soaked with blood (some amount of pink or even red tinged mucus or saliva is expected) 3) if you develop swelling or redness in the skin around your eyes 4) if you have severe pain that is not better with regular over-the counter pain medicines or medicine that you are prescribed for pain 5) if you begin to bleed and it does not stop after you have followed the advice above 6) if you develop foul smelling discharge from your nose 7) if you feel weak, faint or have trouble breathing or talking If you develop any new or worsening symptoms and need after hours care, please go to nearest ER and/or call 911. If you have additional concerns or develop a change in your condition between 8am-10pm, please call [facility] at [phone] to help navigate your care. [email or web address] Not available 04/22/2018 16:31:54 Reason for Referral None Reported. Medical Equipment None Reported. Allergies No known drug allergies Medications Name Sig Start Date Stop Date Status Note LastModified by Organization Details LastModified Time fluoxetine 40 mg capsule 04/22 completed Not Available Not Available Not Available amoxicillin 500 mg capsule 04/22 completed Not Available Not Available Not Available citalopram 40 mg tablet active Not Available Not Available Not Available pravastatin 40 mg tablet active Not Available Not Available Not Available sertraline 100 mg tablet 04/22 completed Not Available Not Available Not Available sumatriptan 50 mg tablet 04/22 completed Not Available Not Available Not Available omeprazole 40 mg capsule,del ayed release active Not Available Not Available Not Available lorazepam 0.5 mg tablet active Not Available Not Available Not Available trazodone 100 mg tablet active Not Available Not Available Not Available Margarito-Synephr ine (phenylephr ine) 0.5 % nasal spray 2 sprays to affected nares administe red on scene. Time administe red: 2017 active Not Available Not Available Not Avai lable Allergy Relief (cetirizine ) 10 mg tablet active Not Available Not Available Not Available Suboxone 8 mg-2 mg sublingual film active Not Available Not Available Not Available Suboxone 12 mg-3 mg sublingual film active Not Available Not Available Not Available Vitals Date Recorded Body temperature Respiratory rate Oxygen saturation Oxygen saturation in Arterial blood by Pulse oximetry Heart rate Systolic And Diastolic Provider Name and Address Organization Details Last Updated DateTime 8 97.3 [degF] 12 /min 93 % 93 % 60 /min 130/80 mm[Hg] Not Available [facility] 8 16:10:40 Social History Question Answer Notes LastModified by Organizat ion Details LastModified Time Tobacco Smoking Status Current Every Day Smoker DEANNA MONROY [address] [place], [address], [place] [facility] 04/22/2018 16:04:27 Marital Status Informati on not available 04/22/2018 What Was The Date Of Your Most Recent Tobacco Screening? 04/22/2018 Information not available 12/13/2018 How Much Tobacco Do You Smoke? 0.5 PPD [email or web address] Information not available 04/22/2018 Sex: Unknown Functional Status None recorded. Mental Status None recorded. Family History Relationship Description Onset Age of this Age Resolved Age Notes LastModified by Organization Details LastModified Time Father Heart disease [email or web address] Not available 06/2017 16:05:00 Mother Heart disease [email or web address] Not available 06/2017 16:05:20 Medical History Condition Response Diabetes N Coronary Artery Disease N High Cholesterol Y Cancer N Pulmonary Embolism N Stroke N Hypertension N Asthma N COPD N Depression Y Kidney Disease N Past Encounters Encounter ID Performer Location Encounter Start Date Encounter Closed Date Diagnosis/Indication Diagnosis SNOMED-CT Code Diagnosis ICD10 Code Diagnosis IMO Codes Diagnosis Note [id number] DEANNA MONROY [facility] [address] [place] [address] 04/22/2018 15:39:21 04/24/2018 11:30:49 Anterior epistaxis 553759482 R04.0 Health Concerns Section Related Observation LastModified by Organization Detai ls LastModified Time None Recorded Concern Status LastModified by Organization Details LastModified Time None Recorded Advance Directives Directive None Recorded Payers Insurance Date Sequence Insurance Name Policy Number Policy Mishra Covered Member ID Mishra Member ID Guarantor Name 04/24/2018 1 [facility] Heaven Oshea [id number] Heaven Oshea 04/22/2018 1 *SELF PAY* Heaven [id number] [id number] Heaven Cobb Tassel 04/22/2018 1 [facility] [id number] Heaven Cobb Tassel [id number] Heaven Cobb Tassel 04/24/2018 1 [facility] [id number] Heaven Cobb Tassel [id number] Heaven Cobb Tassel 04/24/2018 1 [facility] [id number] Heaven Cobb Tassel [id number] Heaven Cobb Tassel Notes Date Note Type Note Provider Name and Address Organization Details Recorded Time 04/22/2018 text/html Pt is a 62 y/o F with pmhx including but not limited to HLD, Depression, Nicotene Dependence, Opioid Dependence currently on Suboxone new to who currently lives at home with her who we are called to evaluate for epistaxis. Sxs began this am out of the left nare. Had been intermittent all day then active bleeding, profuse bleeding began from 2:30-3:30 promptly to call us. Pt has no previous history of nose bleeds, not on any anticoagulants. Pt states she has sinus issues and has been blowing her nose excessively and forcefully over the past few days. Has had heat in her house up and it has been dry. No trauma. Denies fever, chills, headache, dizziness, CP, SOB, palpitations, syncope. DEANNA MONROY [address] [place], [address], [place] [facility] 04/22/2018 18:04:26
--- OUTSIDE RECORDS SUMMARY | 2025-03-17 06:59 | XMS_ITS | Clinical Summary ---
Author Organization [facility] Address [address] [place] [address] Care Team Providers Care Master Control Technician Name Role Phone Landry Buck MD Primary Care Provider + [phone] Allergies No known active allergies Medications Medication [...] mg by mouth daily. 0 12/11/2019 Active Azkemnybnz-REZK-Rwj feine 50-300-40 MG CAPS TAKE 1 CAPSULE [...] Osteoporosis Screening (DEXA Scan) 07/28/2020 Influenza Vaccine (#1) 2025 RSV Adult > 60+ Yrs or Pregn ant (1 - 1-dose 75+ series) 07/28/2030 Hepatitis B Vaccines Aged Out No long er eligible based on patient's age to complete this topic RSV Ped < 20 months Aged Out No longe r eligible based on patient's age to complete this topic Care Teams Master Control Technician Relationship Specialty Start Date End Date Landry Buck MD PCP - General Internal Medicine 12/20/16
--- OUTSIDE RECORDS SUMMARY | 2025-03-17 07:00 | XMS_ITS | Clinical Summary ---
Author Organization [facility] Address [address] [place] [id number] Phone Care Team Providers Care Spot Remover Name Role Phone Unknown, Unknown Primary Care Provider Serjio man Social History Tobacco Use Types Packs/Day Years Used Date Smoking Tobacco: Never Assessed Education Answer Date Recorded Are you interested in more education? Not on savanna e 09/16/2022 Are you concerned about learning? Not on file 09/16/2022 No 09/16/2022 No 09/16/2022 Digital Access Answer Date Recorded No 10/18/2022 No 10/18/2022 No 10/18/2022 Reliable internet access at home? Not on file 10/18/2022 Device with a working camera? Not on file Comments Unknown Sex and Gender Information Value Date Recorded Sex Assigned at Not on file Legal Sex Female 1:57 PM EDT Gender Identity Not on file Sexual Orientation Not on file Plan of Treatment Not on file Medical Devices Not on file Insurance [facility] H[facility] Care Teams Spot Remover Relationship Specialty Start Date End Date Unknown, Unknown, PCP - General 12/07/18 Additional Source Comments The information contained in this document represents components of the legal health record. It is not the complete legal health record.[facility]
--- OUTSIDE RECORDS SUMMARY | 2025-03-17 07:00 | XMS_ITS | Data Portability ---
Author Organization [place] [facility] Shae Obrien [facility] [place] Address [address] [place] [address] Care Team Providers Care Control Board Operator Name Role Phone JASPER GONZALES Referring Provider [phone] Assessment Encounter Date Assessment Date Assessment LastModified by Organization Details LastModified Time 05/03/2024 05/03/2024 HPI : Patient is here today with complaints of left knee pain. T he patient is experiencing left knee pain, which is moderate in intensity, and has recently worsened. The pain limits some activities of daily living. Walking tolerance is reduced. Pain and restriction of function are moderate at this time. Her symptoms worsened over the last 6 weeks where she felt a sharp pain when getting up from a seated position. She has a history of left knee arthroscopy with Dr. Stovall from 2019. She does note a remote history of cortisone injection with [facility] Kyle. Review of systems is negative for other rapidly progressive neurological disorder, chest pain, shortness of breath, fevers, chills, or any signs of active or persistent local or systemic infection. Physical Exam : Patient is well nourished, well-developed, in no acute distress, with appropriate mood and affect. The patient is oriented to time, place, and person. Examination of the contralateral knee shows normal range of motion, strength, no tenderness, and intact skin. The affected limb is well-perfused, without skin lesions, shows a grossly normal motor and sensory examination. Left knee motion is reduced and does cause significant pain. The left knee moves from 5-125 degrees. The knees are stable within those [id number] . The alignment of the left knee is neutral . Muscle strength is normal. Pedal pulses are palpable. Hip examination, including flexion and internal rotation, was negative in that groin pain was not produced. Assessment/Plan : The patient has left knee arthritis. An extensive discussion was conducted on the natural history of the disease and the variety of surgical and non-surgical options available to the patient including, but not limited to non-steroidal anti-inflammator y medications, steroid injections, viscosupplementa tion, physical therapy, maintenance of ideal body weight, and reduction of activity. Plan for left knee cortisone injection today. Her preference is to follow-up as needed. Follow-up can be with [facility] Padron or ut. Not available 05/03/2024 10:28:53 Plan of Treatment Reminders Order Date Submit Date Provider Last Modified By Organization Details Last Modified Time Details Appointments ESTABLISH ED/AONE REFERRAL 2024 09:00A M CALIXTO PADRON PA-C Not available Not available Not available Lab None recorded. Referral None recorded. Procedures None recorded. Surgeries None recorded. Imaging XR, knee, 4 or more view 2023 [email or web address] [facility], [address], [facility], [place], [address], 05/03/2024 10:32:38 Medication Orders Marcaine (PF) 0.5 % (5 mg/mL) injection solution 2023 024 [email or web address] [facility] #[id number], [address] [place] [address], [id number], 05/03/2024 10:32:38 lidocaine (PF) 100 mg/5 mL (2 %) injection syringe 2023 024 [email or web address] #[id number], [address] [place], [place], [id number], 05/03/2024 10:32:38 triamcino lone acetonide 40 mg/mL suspensio n for injection 2023 024 [email or web address] [facility] #[id number], [address] [place], [place], [id number], 05/03/2024 10:32:38 Patient TargetsNo targets recorded. Patient Instructions Encounter Date Encounter Id Patient Instructions Last Modified By Organization Details Last Modified Time 05/03/2024 [id number] AP, lateral, Najera, and patellar view radiographs of the left knee taken today demonstrate left knee degenerative joint disease with joint space narrowing, osteophyte formation, and subchondral sclerosis. Not available 05/03/2024 10:27:51 Reason for Referral None Reported. 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 Procedures Surgical History Date Name Laterality Status Provider Name and Address Organization Details Recorded Time 4 MJG Knee Injection w/o US completed James Moyer MD [address] [facility] [address], [place], [address], [place] [facility] 05/03/2024 10:27:43 Imaging Results None recorded. Procedure Notes None recorded. Medical Equipment None Reported. Medications Name Sig Start Date Stop Date Status Note LastModified by Organization Details LastModified Time fluconazole 100 mg tablet Take 100 mg by mouth every morning. 2021 active Not Available Not Available Not Avai lable venlafaxine ER 37.5 mg capsule,ext ended release 24 hr Take 37.5 mg by mouth daily. active Not Available Not Available No t Available citalopram 40 mg tablet citalopra m 40 mg tablet active Not Available Not Available No t Available trazodone 50 mg tablet TAKE 2 TABLETS BY MOUTH EVERY DAY AT BEDTIME NEEDED active Not Available Not Available No t Available azithromyci n 250 mg tablet active Not Available Not Available Not Available pravastatin 40 mg tablet Take 40 mg by mouth daily. active Not Available Not Available No t Available betamethaso ne, augmented 0.05 % topical cream 2021 active Not Available Not Available Not Avai lable venlafaxine ER 150 mg capsule,ext ended release 24 hr TAKE 1 CAPSULE BY MOUTH EVERY DAY active Not Available Not Available No t Available omeprazole 40 mg capsule,del ayed release Take 40 mg by mouth daily. active Not Available Not Available No t Available hydromorpho ne 2 mg tablet Take 1 tab every 6 hours as needed for pain 2019 active Not Available Not Available Not Avai lable lorazepam 0.5 mg tablet 2019 active Not Available Not Available Not Avai lable trazodone 100 mg tablet TAKE 2 TABLETS BY MOUTH AT BEDTIME active Not Available Not Available No t Available dexamethaso ne 1 mg tablet TAKE 1 TABLET BY MOUTH AT 11 PM FOR 1 DAY active Not Available Not Available No t Available amitriptyli ne 10 mg tablet 2019 active Not Available Not Available Not Avai lable triamcinolo ne acetonide 40 mg/mL suspension for injection Take 40 mg by injection route. 2023 active Not Available Not Available Not Avai lable venlafaxine 37.5 mg tablet TAKE 1 TABLET BY MOUTH DAILY WITH 150 MG TABSULES active Not Available Not Available No t Available methylpredn isolone acetate 40 mg/mL suspension for injection 07/27 completed Not Available Not Available Not Available ferrous sulfate 325 mg (65 mg iron) tablet Take 1 tablet (325 mg total) by mouth every morning with breakfast . 2018 active Not Available Not Available Not Avai lable folic acid 1 mg tablet Take 1 tablet (1,000 mcg total) by mouth daily. 2018 active Not Available Not Available Not Avai lable propranolol 20 mg tablet TAKE 1 TABLET BY MOUTH TWICE DAILY active Not Available Not Available No t Available betamethaso ne dipropionat e 0.05 % topical ointment APPLY TOPICALLY TO THE SKIN 2 TIMES WEEKLY active Not Available Not Available No t Available topiramate 100 mg tablet TAKE 1 TABLET BY MOUTH EVERY NIGHT AT BEDTIME active Not Available Not Available No t Available aripiprazol e 5 mg tablet TAKE 1 TABLET BY MOUTH EVERY DAY active Not Available Not Available No t Available rosuvastati n 20 mg tablet TAKE 1 TABLET BY MOUTH EVERY DAY active Not Available Not Available No t Available Marcaine (PF) 0.5 % (5 mg/mL) injection solution Take 4 mL by injection route. 2023 active Not Available Not Available Not Avai lable topiramate 50 mg tablet Take 50 mg by mouth every night at bedtime. 2020 active Not Available Not Available Not Avai lable lidocaine (PF) 10 mg/mL (1 %) injection solution 07/27 completed Not Available Not Available Not Available aripiprazol e 2 mg tablet TAKE 1 TABLET BY MOUTH DAILY active Not Available Not Available No t Available hylan g-f 20 48 mg/6 mL intra-artic ular syringe 01/15 completed Not Available Not Available Not Available butalbital- acetaminoph en-caffeine 50 mg-300 mg-40 mg capsule TAKE 1 CAPSULE BY MOUTH EVERY DAY NEEDED 2019 active Not Available Not Available Not Avai lable buprenorphi ne 8 mg-naloxone 2 mg sublingual film 2020 active Not Available Not Available Not Avai lable lidocaine (PF) 100 mg/5 mL (2 %) injection syringe Take 4 mL by injection route. 2023 active Not Available Not Available Not Avai lable Linzess 145 mcg capsule TAKE 1 CAPSULE BY MOUTH EVERY DAY 30 MINUTES BEFORE FIRST MEAL OF THE DAY ON AN EMPTY STOMACH active Not Available Not Available No t Available buprenorphi ne 12 mg-naloxone [address] 12 mg under the tongue daily. active Not Available Not Available No t Available Vitals None Recorded Social History None recorded. Functional Status None recorded. Mental Status None recorded. Family History Nothing Reported. Medical History No medical history recorded. Gynecological HistoryNo gynecological history recorded. Obstetrics History GPAL:G 0 P 0 0 0 0 Past Encounters Encounter ID Performer Location Encounter Start Date Encounter Closed Date Diagnosis/Indication Diagnosis SNOMED-CT Code Diagnosis ICD10 Code Diagnosis IMO Codes Diagnosis Note [id number] MD DAVE Chiu [address] [place] [address] 05/03/2024 09:56:19 05/03/2024 10:31:23 Pain of left knee region 1442146147 06500 M25.562 [id number] Osteoarthr itis of left knee joint 3686919741 90169 M17.12 4111988 Health Concerns Section Related Observation LastModified by Organization Detai ls LastModified Time None Recorded Concern Status LastModified by Organization Details LastModified Time None Recorded Advance Directives Directive None Recorded Payers Insurance Date Sequence Insurance Name Policy Number Policy Mishra Covered Member ID Mishra Member ID Guarantor Name 04/30/2024 1 [place]: [employer] Heaven Oshea [id number] Heaven Oshea 05/28/2024 2 [facility] - PLAN 1 (MEDICARE SUPPLEMENT) [id number] Heaven Oshea [id number] Heaven Oshea OBGyn Episode No OBEpisode recorded.
== END 2025-03-17 06:57 | disposition home or self-care (01) ==
LOC: HO.HOSX 06:56
PROVIDERS: Visit Provider Orthopaedic Surgery
DX: S83.242A Other tear of medial meniscus, current injury, left knee, initial encounter (principal); X50.0XXA Overexertion from strenuous movement or load, initial encounter
CPT/HCPCS: 73562; 99202

== ENCOUNTER 2025-03-17 11:30 | Outpatient (AMB) | payer MEDICARE, OTHER, SELFPAY ==
--- NOTE | 2025-03-17 11:33 | MHC.OFFVIS ---
Vital Signs 03/17/25 11:51 Height 5 ft 7 in Weight 157 lb BMI 24.6 Intake Visit Reasons: Left knee pain and giving way Intake Note: Heaven is a 69 year old female who presents with complaints of progressively worsening left knee pain and giving way. She describes her knee pain as sharp in nature. Most of the pain is along the medial aspect of her knee. The patient states that she injured her knee several months ago while working out at the gym. She twisted her knee and had acute onset of pain. She has failed the last 6 weeks of conservative treatment which has included Tylenol, anti-inflammatory medicines, physical therapy exercises and a home exercise program. She states that her left knee will give out several times per day. Allergies No Known Allergies Allergy (Verified 03/17/25 11:51) Medication List - Last Reconciled 03/17/25 by Chino Horton MD aripiprazole 2 mg PO DAILY aspirin 81 mg PO DAILY linaclotide (Linzess) 145 mcg PO DAILY omeprazole 40 mg PO QAM propranolol 20 mg PO BID 30 days rosuvastatin 20 mg PO DAILY trazodone 100 mg PO BEDTIME venlafaxine ER 150 mg PO DAILY [facility] Medical History COVID Headache Depression GERD (gastroesophageal reflux disease) Hypercholesterolemia Low back pain Migraine Family History Sister Migraine Sister Migraine Physical Exam Vital Signs: BMI result Body Mass Index 24.6 Const Other: Well-nourished well-developed very friendly female awake alert and oriented x3 in no acute distress Extrem Other: Left knee examination shows a minimal effusion, mild crepitus with range of motion, tenderness along her medial joint line, positive Félix's test, no instability Results Reviewed Results Reviewed: Standing full weight-bearing x-rays of the patient's left knee show mild diffuse joint space narrowing, no acute bony abnormalities Assessment & Plan Assessment & Plan (1) Tear of medial meniscus of left knee: Code(s): S83.242A - Other tear of medial meniscus, current injury, left knee, initial encounter Category: Medical Plan Ms. Rice presents with progressively worsening left knee pain and mechanical symptoms most likely due to a medial meniscus tear. Thus, I will send the patient for an MRI of her left knee for further evaluation. I will see her back once the MRI is completed to discuss the findings and treatment options. I did give her a prescription for a Medrol Dosepak to help with her symptoms in the meantime. Feel free to call me at any time should questions regarding her orthopedic management arise. Thank you very much for asking me to see this very friendly patient. I spent 21 minutes in reviewing the patient's records and imaging studies, seeing the patient and documenting in the medical record. Orders: Orders MR knee LT wo con 03/18/25 S83.242A - Other tear of medial meniscus, current injury, left knee, initial encounter XR knee LT 3V Today M25.562 - Pain in left knee Medications: New methylprednisolone (Medrol (Luciano)) PO PER PKG DIR 21 ea 0RF Coding Level of Care Code New Pt Level 3 (98425) Complex EM visit Add On G2211 Diagnoses Tear of medial meniscus of left knee S83.242A
[2025-03-17 11:51] VITALS: BMI 24.6
== END 2025-03-17 12:15 | disposition home or self-care (01) ==
LOC: HO.HOS 11:31
PROVIDERS: PCP Internal Medicine; Visit Provider Orthopaedic Surgery
DX: S83.242A Other tear of medial meniscus, current injury, left knee, initial encounter (principal)
CPT/HCPCS: 99203; G2211

== ENCOUNTER → 2025-03-17 11:31 | Outpatient (BNV) | payer MEDICARE, OTHER, SELFPAY | PROVIDERS: Visit Provider Radiology Diagnostic Radiology | DX: M25.562 Pain in left knee (principal) | CPT/HCPCS: 73562 ==

== ENCOUNTER 2025-04-08 11:04 | Outpatient (AMB) | payer MEDICARE, OTHER, SELFPAY ==
--- NOTE | 2025-04-08 11:06 | A.OFFVIS_ITS ---
Vital Signs 04/08/25 11:08 Height 5 ft 7 in Weight 157 lb BMI 24.6 Intake Visit Reasons: Left knee pain and giving way Intake Note: Heaven is a 69 year old female who presents with complaints of progressively worsening left knee pain and giving way. She describes her knee pain as sharp in nature. Most of the pain is along the medial aspect of her knee. The patient states that she injured her knee several months ago while working out at the gym. She twisted her knee and had acute onset of pain. She has failed the last 6 weeks of conservative treatment which has included Tylenol, anti- inflammatory medicines, physical therapy exercises and a home exercise program. She states that her left knee will give out several times per day. Allergies No Known Allergies Allergy (Verified 03/17/25 11:51) Medication List - Last Reconciled 04/08/25 by Chino Horton MD aripiprazole 2 mg PO DAILY aspirin 81 mg PO DAILY linaclotide (Linzess) 145 mcg PO DAILY methylprednisolone (Medrol (Luciano)) PO PER PKG DIR omeprazole 40 mg PO QAM propranolol 20 mg PO BID 30 days rosuvastatin 20 mg PO DAILY trazodone 100 mg PO BEDTIME venlafaxine ER 150 mg PO DAILY PFSH Medical History COVID Headache Depression GERD (gastroesophageal reflux disease) Hypercholesterolemia Low back pain Migraine Family History Sister Migraine Sister Migraine Social History Alcohol intake: never Patient Tobacco Use Status: Current someday Tobacco user Current occupational status: retired Physical Exam Vital Signs: BMI result Body Mass Index 24.6 Extrem Other: Left knee examination shows a minimal effusion, mild crepitus with range of motion, tenderness along her medial joint line, positive Félix's test, no instability Results Reviewed Results Reviewed: Standing full weight-bearing x-rays of the patient's left knee show mild diffuse joint space narrowing, no acute bony abnormalities MRI of the patient's left knee shows mild to moderate diffuse degenerative changes as well as a tear of the medial meniscus Assessment & Plan Assessment & Plan (1) Tear of medial meniscus of left knee: Code(s): S83.242A - Other tear of medial meniscus, current injury, left knee, initial encounter Category: Medical Plan Ms. Rice presents with progressively worsening left knee pain and mechanical symptoms due to early degenerative joint disease as well as a medial meniscus tear. I had a lengthy discussion with the patient regarding the treatment options. At this point she has failed continued non operative treatments. The risks and benefits of left knee arthroscopic surgery were discussed at length with the patient. The patient wishes to proceed with surgery. She wishes to hold off on left total knee replacement surgery for as long as possible. I agree with this plan. Surgery will involve left knee arthroscopic partial medial meniscectomy. The patient will be scheduled for next available date. She will follow up as instructed. Feel free to call me at any time should questions regarding her orthopedic management arise. I spent 22 minutes in reviewing the patient's records and imaging studies, seeing the patient and documenting in the medical record. Coding Level of Care Code Est Pt Level 3 (77365) Complex EM visit Add On G2211 Diagnoses Tear of medial meniscus of left knee S83.242A
[2025-04-08 11:08] VITALS: BMI 24.6
== END 2025-04-08 11:48 | disposition home or self-care (01) ==
LOC: HO.HOS 11:04
PROVIDERS: Visit Provider Orthopaedic Surgery
DX: S83.242A Other tear of medial meniscus, current injury, left knee, initial encounter (principal)
CPT/HCPCS: 99213; G2211

== ENCOUNTER → 2025-04-08 11:04 | Outpatient (BNVA) | payer MEDICARE, OTHER, SELFPAY | PROVIDERS: Visit Provider Orthopaedic Surgery | DX: S83.242A Other tear of medial meniscus, current injury, left knee, initial encounter (principal); X50.1XXA Overexertion from prolonged static or awkward postures, initial encounter; Y93.79 Activity, other specified sports and athletics; Y92.39 Other specified sports and athletic area as the place of occurrence of the external cause; Y99.8 Other external cause status | CPT/HCPCS: 99212 ==

== ENCOUNTER 2025-05-16 06:44 | Day surgery (SDC) | payer MEDICARE, OTHER, SELFPAY ==
[2025-04-29 09:08] VITALS: BP 146/67; RESP 20; O2SAT 97; BMI 24.6
--- NOTE | 2025-04-29 09:22 | HO.ANESPROP2 ---
Documented by User: Alyson Guajardo NP 04/29/25 09:28 HPI - Anesthesia Eval Consult details Narrative: 69yo F for Left Knee Arthroscopy,partial medial meniscectomy,possible Lateral Meniscectomy, 05/16/25 No recent illness No CP/SOB with activity limited by knee pain. Prior to injury (~ 1 month ago) regular strength and cardio at the gym GERD: ppi controls Cardiac ablation ~ 10 years ago for rapid heart beat. Pt unsure of exact etiology. No recurrence since ablation. Only PCP follows now [facility] Active Problems Active Problems: All Active Problems Tear of medial meniscus of left knee (Acute) Left knee pain (Acute) Migraine (Acute) Past Medical History Medical History Arthritis Depression GERD (gastroesophageal reflux disease) Hypercholesterolemia Low back pain Migraine Family History Family History Sister Migraine Sister Migraine Family history of problems with anesthesia: No Surgical History Surgical History Hx of bilateral cataract extraction History of esophagogastroduodenoscopy (EGD) H/O colonoscopy Hx of breast augmentation History of left oophorectomy S/P ablation of ventricular arrhythmia History of Problems with Anesthesia: No Social History Social History Are you a primary dog day care attendant to a significant other at home: No Do you presently have visiting nurse or other home services: No Alcohol intake: never Patient Tobacco Use Status: Current everyday Tobacco user Tobacco use type: Cigarette Cigarettes Per Day: 7 Years Smoked: 50 Use of substances other than those prescribed or required for medical reasons: No Have you been hit, kicked, punched, or otherwise hurt by someone within the past year? If so, by whom?: No Spiritual Healthcare Practices: no Druze Healthcare Practices: no Cultural Healthcare Practices: no Are you DNR?: No Advance Directives: No (spouse is primary contact) Advance Directives Information Provided: Yes (as above noted) Advance Directives on File: No FDLMP: n/a Current occupational status: retired Meds Allergies Allergy/AdvReac Type Severity Reaction Status Date / Time No Known Allergies Allergy Verified 03/17/25 11:51 Home Medications ?Medication ?Instructions ?Recorded ?Confirmed ?Last Taken ?Type aripiprazole 2 mg tablet 2 mg PO QAM 11/19/24 04/29/25 Unknown History aspirin 81 mg tablet 81 mg PO QAM 11/19/24 05/16/25 05/14/25 History omeprazole 40 mg capsule,delayed 40 mg PO QAM 11/19/24 05/16/25 05/16/25 History release trazodone 100 mg tablet 100 mg PO BEDTIME 11/19/24 04/28/25 Unknown History venlafaxine 150 mg 150 mg PO QAM 11/19/24 04/29/25 Unknown History capsule,extended release 24 hr linaclotide 145 mcg capsule 145 mcg PO QAM 03/17/25 04/29/25 Unknown History (Linzess) rosuvastatin 20 mg tablet 20 mg PO QAM 03/17/25 04/29/25 Unknown History propranolol 20 mg tablet 20 mg PO BID migraine prevention 04/29/25 04/28/25 Unknown History Exam Height,Weight and Vital Signs: Height 5 ft 7 in Weight 71.214 kg Last Vital Signs Resp 20 04/29/25 09:08 BP 146/67 H 04/29/25 09:08 Pulse Ox 97 04/29/25 09:08 O2 Del Method Room Air 04/29/25 09:08 Airway Mallampati Class: III TM Dist: >3cm Neck ROM: Full Partial: Upper and Lower Heart: RRR Lungs: CTAB Assessment and Plan Assessment Anesthesia Assessment: Anesthesia Plan Discussed and PAT Visit Final Anesthetic Review Family History of Problems with Anesthesia: No History of Problems with Anesthesia: No Documented by User: Garth Garber MD 05/16/25 08:44 [facility] Past Medical History Medical History Arthritis Depression GERD (gastroesophageal reflux disease) Hypercholesterolemia Low back pain Migraine Family History Family History Sister Migraine Sister Migraine Surgical History Surgical History Hx of bilateral cataract extraction History of esophagogastroduodenoscopy (EGD) H/O colonoscopy Hx of breast augmentation History of left oophorectomy S/P ablation of ventricular arrhythmia Social History Social History Are you a primary dog day care attendant to a significant other at home: No Do you presently have visiting nurse or other home services: No Alcohol intake: never Patient Tobacco Use Status: Current everyday Tobacco user Tobacco use type: Cigarette Cigarettes Per Day: 7 Years Smoked: 50 Use of substances other than those prescribed or required for medical reasons: No Have you been hit, kicked, punched, or otherwise hurt by someone within the past year? If so, by whom?: No Spiritual Healthcare Practices: no Druze Healthcare Practices: no Cultural Healthcare Practices: no Are you DNR?: No Advance Directives: No (spouse is primary contact) Advance Directives Information Provided: Yes (as above noted) Advance Directives on File: No FDLMP: n/a Current occupational status: [employer] Allergies Allergy/AdvReac Type Severity Reaction Status Date / Time No Known Allergies Allergy Verified 03/17/25 11:51 Home Medications ?Medication ?Instructions ?Recorded ?Confirmed ?Last Taken ?Type aripiprazole 2 mg tablet 2 mg PO QAM 11/19/24 04/29/25 Unknown History aspirin 81 mg tablet 81 mg PO QAM 11/19/24 05/16/25 05/14/25 History omeprazole 40 mg capsule,delayed 40 mg PO QAM 11/19/24 05/16/25 05/16/25 History release trazodone 100 mg tablet 100 mg PO BEDTIME 11/19/24 04/28/25 Unknown History venlafaxine 150 mg 150 mg PO QAM 11/19/24 04/29/25 Unknown History capsule,extended release 24 hr linaclotide 145 mcg capsule 145 mcg PO QAM 03/17/25 04/29/25 Unknown History (Linzess) rosuvastatin 20 mg tablet 20 mg PO QAM 03/17/25 04/29/25 Unknown History propranolol 20 mg tablet 20 mg PO BID migraine prevention 04/29/25 04/28/25 Unknown History Exam Exam Date and Time: 05/16/25 Assessment and Plan Final Anesthetic Review NPO: Yes ASA Class: II Final Preanesthetic Review: No Changes in Pt Med Stat, Meds/Allgs Chart Reviewed, Consent Obtained/Reviewed and Anes Risks/Benef Reviewed Patient Risk: Low Procedure Risk: Low Anesthetic Plan Anesthetic Plan: GA Disposition: Standard PACU
[2025-05-16] VITALS (9 sets, daily range): BP systolic 123–162; BP diastolic 49–67; PULSE 71–82; RESP 10–22; TEMP 36.3–36.7; O2SAT 92–97
[2025-05-16] MEDS: Lactated Ringers 1,000 ML 100 ML IVCONT (07:12)
--- NOTE | 2025-05-16 10:06 | P.BOP_ITS ---
Brief Operative Note Date of Service: 05/16/25 Pre-op diagnosis: Left knee medial meniscus tear, left knee degenerative joint disease Post-op diagnosis: same Procedure: Left knee arthroscopic partial medial meniscectomy, left knee arthroscopic chondroplasty of the undersurface of the patella as well as the medial femoral condyle Implants: None Surgeon: Chino Horton MD Anesthesia: GLMA Was an Health Promotion Officer used for this Procedure?: No Estimated blood loss (mL): 10 Pathology: none sent Condition: stable Disposition: PACU
--- NOTE | 2025-05-16 10:06 | W.PM.OPN ---
Operative Note Operative Note Date of Service: 05/16/25 Narrative: After the patient was identified as Heaven Rice and her left knee was initialed by myself they were brought to the operating room where general anesthesia was induced by the anesthesiologist in routine fashion. The patient was given 2 g of IV Ancef preoperatively for infection prophylaxis. The patient's left lower extremity was prepped and draped in sterile fashion. A formal time-out was completed. Marcaine was injected into the planned incision sites as well as the patient's left knee joint. A #11 scalpel blade was used to make an anterolateral portal 1 cm proximal to the joint line and 1 cm lateral to the patellar tendon. Blunt trocar technique was used to enter the suprapatellar pouch with the knee in extension. Diagnostic arthroscopy showed multiple bands of thickened plica which would be excised at the end of the procedure. There were no loose bodies or abnormalities found in either the medial or lateral gutters. The articular surface of the patella showed diffuse grades 1 and 2 degenerative changes. The trochlear groove articular surface showed diffuse grades 1 and 2 degenerative changes. The patient's knee was flexed to 45 degrees and a valgus force was placed upon it. The medial compartment was entered. An anteromedial portal was made 1 cm proximal to the joint line and 1 cm medial to the patellar tendon. Probing of the medial meniscus showed a radial tear of the posterior horn. A partial medial meniscectomy was performed using the arthroscopic shaver. Following the partial meniscectomy the remainder of the meniscus tissue was stable. There were diffuse grades 1 and 2 degenerative changes of the medial femoral condyle as well as grades 1 and 2 degenerative changes of the medial tibial plateau. The articular surface of the medial femoral condyle was then made smooth using the arthroscopic shaver. The articular surface of the medial tibial plateau was already smooth so no chondroplasty was indicated. The patient's knee was placed into a neutral position. There was no injury to the anterior cruciate ligament. The patient's knee was then placed in the figure of 4 position and the lateral compartment was entered. There was no evidence of lateral meniscus tearing. There were minimal degenerative changes of the lateral femoral condyle and lateral tibial plateau. The patient's knee was once again brought into extension and the suprapatellar pouch was entered. The arthroscopic shaver and the ArthroCare Wand were used to excise the thickened bands of plica. The undersurface of the patella was then made smooth using the arthroscopic shaver. The articular surface of the trochlear groove was already smooth so no chondroplasty was indicated. The knee joint was irrigated and then drained. All arthroscopic instruments were removed. The 2 portals were closed with 3-0 nylon interrupted suture. The knee joint was injected with Marcaine. Dry sterile dressing and Rajiv bandages were placed over the patient's knee. The patient was awoken and extubated in the operating room. The patient was transferred to the recovery room in stable condition.
== END 2025-05-16 11:55 | disposition home or self-care (01) ==
PROVIDERS: PCP Internal Medicine; Visit Provider Orthopaedic Surgery
PROC: (CPT 29870; principal; 2025-05-16 09:00)
DX: S83.242A Other tear of medial meniscus, current injury, left knee, initial encounter (principal); M17.12 Unilateral primary osteoarthritis, left knee; M25.562 Pain in left knee; M23.52 Chronic instability of knee, left knee; M67.52 Plica syndrome, left knee; X50.1XXA Overexertion from prolonged static or awkward postures, initial encounter; Y93.B9 Activity, other involving muscle strengthening exercises; Y92.39 Other specified sports and athletic area as the place of occurrence of the external cause; Y99.9 Unspecified external cause status; E78.00 Pure hypercholesterolemia, unspecified; G43.909 Migraine, unspecified, not intractable, without status migrainosus; K21.9 Gastro-esophageal reflux disease without esophagitis; M54.50 Low back pain, unspecified; Z79.82 Long term (current) use of aspirin; Z79.899 Other long term (current) drug therapy; F17.210 Nicotine dependence, cigarettes, uncomplicated
CPT/HCPCS: 29881; J0131; J0690; J0696; J1100; J1171; J2003; J2250; J2371; J2405; J2704; J2795; J3010

== ENCOUNTER → 2025-05-16 06:44 | Outpatient (BNV) | payer MEDICARE, OTHER, SELFPAY | PROVIDERS: PCP Internal Medicine; Visit Provider Orthopaedic Surgery | DX: S83.242A Other tear of medial meniscus, current injury, left knee, initial encounter (principal) | CPT/HCPCS: 29881 ==